=== PATIENT | male | born 1955 | race Hispanic/Latino ===

== ENCOUNTER 2018-03-05 11:22 | Inpatient (IN) | payer OTHER, BC ==
--- NOTE | 2018-03-05 13:15 | RAD ---
PROCEDURE: Right Femur Radiographs. HISTORY: trauma COMPARISON: None. TECHNIQUE: AP and Lateral Radiographs of the right femur. FINDINGS: FEMUR: Impacted right femoral neck fracture. No other fracture identified. SOFT TISSUES: Normal. OTHER FINDINGS: None. IMPRESSION: Impacted right femoral neck fracture.
--- NOTE | 2018-03-05 13:16 | RAD ---
PROCEDURE: Right Hip Radiographs. HISTORY: trauma COMPARISON: None. FINDINGS: BONES: Comminuted right femoral neck fracture with some impaction. No other fracture identified. JOINTS: No dislocation. No evidence arthritis. SOFT TISSUES: Normal. OTHER FINDINGS: None. IMPRESSION: Comminuted nondisplaced femoral neck fracture with mild impaction.
[2018-03-05] MEDS ORDERED: Sodium Chloride 0.9% 1,000 ML IV ONE (13:20)
[2018-03-05 13:53] LABS: BASO % 0.6 % (0.0-2.0); EOS % 0.9 % (0.0-4.0); HEMOGLOBIN 12.8 g/dL (12.0-18.0); LYMPH # 1.1 K/uL (1.0-4.3); LYMPH % 20.1 % (20.0-40.0); MEAN CELL VOLUME 88.6 fL (80.0-94.0); MEAN CORPUSCULAR HEMOGLOBIN 30.6 pg (27.0-31.0); MEAN CORPUSCULAR HGB CONC 34.6 g/dL (33.0-37.0); MEAN PLATELET VOLUME 8.1 fL (7.2-11.7); MONO # 0.6 K/uL (0.0-0.8); MONO % 10.9 % (0.0-10.0); NEUT # 3.6 K/uL (1.8-7.0); NEUT % 67.5 % (50.0-75.0); RBC 4.19 Mil/uL (4.40-5.90); RED CELL DISTRIBUTION WIDTH 12.5 % (11.5-14.5); WHITE BLOOD COUNT 5.4 K/uL (4.8-10.8)
[2018-03-05 14:07] LABS: ALB/GLOB RATIO 1.1 (1.0-2.1); ALBUMIN 4.2 g/dL (3.5-5.0); ALT/SGPT 20 U/L (21-72); AST/SGOT 21 U/L (17-59); BLOOD UREA NITROGEN 18 mg/dL (9-20); CALCIUM 9.4 mg/dl (8.6-10.4); GFR AFRICAN-AMERICAN > 60; GFR NON-AFRICAN AMERICAN > 60
[2018-03-05 14:42] LABS: URINE BILIRUBIN NEGATIVE (NEGATIVE); URINE BLOOD NEGATIVE (NEGATIVE); URINE CLARITY Clear (Clear); URINE COLOR Yellow (YELLOW); URINE GLUCOSE (UA) NORMAL (Normal); URINE LEUKOCYTE ESTERASE NEG Leu/uL (Negative); URINE PROTEIN NEGATIVE (NEGATIVE); URINE UROBILINOGEN NORMAL mg/dL (0.2-1.0)
--- NOTE | 2018-03-05 14:45 | C.PDOC ---
History Of Present Illness 62 yo male with PMH HTN c/o right leg pain for 1 week. Pt notes that he was at work at the [employer], his left foot was stuck in a string and he fell on his right side 10 days ago. PT saw an urgent care 4 days ago who instructed him to take pain medication. Pt followed up yesterday at which time the took Xr and was told he had fracture and instructed to come to the hospital. Pt has been ambulating on it. Denies head injury , back pain, urinary or bowel incontinence , or change in sensation. Time Seen by Provider: 03/05/18 11:45 Chief Complaint (Nursing): Lower Extremity Problem/Injury History Per: Patient History/Exam Limitations: no limitations Onset/Duration Of Symptoms: Days Current Symptoms Are (Timing): Still Present Past Medical History Vital Signs: Last Vital Signs Temp 98.1 F 03/05/18 14:25 Pulse 79 03/05/18 14:25 Resp 18 03/05/18 14:25 BP 152/84 H 03/05/18 14:25 Pulse Ox 99 03/05/18 15:06 - Medical History PMH: HTN Family History: States: Unknown Family Hx - Social History Hx Tobacco Use: No Hx Alcohol Use: No Hx Substance Use: No - Immunization History Hx Tetanus Toxoid Vaccination: No Hx Influenza Vaccination: No Hx Pneumococcal Vaccination: No Review Of Systems Except As Marked, All Systems Reviewed And Found Negative. Physical Exam - Physical Exam Appears: Well, Non-toxic, No Acute Distress Skin: Normal Color, Warm, Dry Head: Atraumatic, Normacephalic Eye(s): bilateral: Normal Inspection, EOMI Nose: Normal Oral Mucosa: Moist Neck: Normal, Normal ROM, Supple Chest: Symmetrical Cardiovascular: Rhythm Regular Respiratory: Normal Breath Sounds, No Accessory Muscle Use Gastrointestinal/Abdominal: Normal Exam, Soft, No Tenderness Back: Normal Inspection, No CVA Tenderness, No Vertebral Tenderness Extremity: No Normal ROM, Tenderness (midfemoral tenderness), Capillary Refill ( < 2 sec) Neurological/Psych: Oriented x3, Normal Speech, Normal Sensation ED Course And Treatment - Laboratory Results Result Diagrams: 03/05/18 13:45 03/05/18 13:45 O2 Sat by Pulse Oximetry: 99 - Other Rad Right hip fx X-Ray: Interpreted by Me, Viewed By Me, Read By Radiologist Interpretation: PROCEDURE: Right Hip Radiographs. HISTORY: trauma. COMPARISON: None. FINDINGS: BONES: Comminuted right femoral neck fracture with some impaction. No other fracture identified. JOINTS: No dislocation. No evidence arthritis. SOFT TISSUES: Normal. OTHER FINDINGS: None. IMPRESSION : Comminuted nondisplaced femoral neck fracture with mild impaction. Progress Note: Pt refused pain medication. Case discussed with Dr Marie, agreed upon admission. Requests Dr Mcneill for consult for ortho. Case discussed with Dr Mcneill, who declines consult. Disposition - Disposition Disposition: HOSPITALIZED Disposition Time: 13:30 Condition: STABLE - Clinical Impression Clinical Impression: Fracture of right hip
--- NOTE | 2018-03-05 14:55 | CP.PCM.PN ---
Objective - Vital Signs/Intake and Output Vital Signs (last 24 hours): Temp Pulse Resp BP Pulse Ox 98.1 F 79 18 152/84 H 99 03/05/18 14:25 03/05/18 14:25 03/05/18 14:25 03/05/18 14:25 03/05/18 14:45 - Medications Medications: Current Medications Sodium Chloride (Sodium Chloride 0.9%) 1,000 mls @ 100 mls/hr IV .Q10H ONE Stop: 03/05/18 23:19 Last Admin: 03/05/18 13:49 Dose: 100 mls/hr - Labs Labs: 03/05/18 13:45 03/05/18 13:45 Assessment and Plan - Assessment and Plan (Free Text) Assessment: Right Femoral Neck Fracture seen on femur xray and hip/pelvis xray Ortho consulted, Dr. Espinoza NPO Toradol 30mg q6h prn cxray, ekg, coags ordered for pre-op HTN continue home medication Losartan 50mg po BID Prophylaxis SCDs no gi prophylaxis indicated
--- NOTE | 2018-03-05 14:58 | CP.PCM.HP ---
History of Present Illness - History of Present Illness History of Present Illness: CC: right thigh pain HPI: Pt is a 62 M with a PMHX of HTN presents c/o of right lower extremity pain. Pt fell at work on 02/24 after tripping over a wire. Pt stated that he fell on his right side and only hit his leg and hip. Pt denies LOC or head trauma during the fall. On 03/01, he visited an urgent care clinic because the of the pain. He was not able to see a physician or get an x-ray so he visited the urgent care clinic again on 03/04 and obtained an X-ray. The patient states the clinic found a fracture and called him this morning to recommend visiting the ED. Pt states that the pain has been intermittent and sharp since the fall. He admits the pain is localized to the front of the thigh and occasionally radiates to the back of the thigh. However, he has been bearing weight and ambulating on the leg since then. Pt states that he did not take any medication to relive the pain and he just applied ice to the leg which helps. Pt states that flexion of the hip worsens the pain. Additionally, the patient is noncompliant with his HTN Medication and takes it once a day occasionally rather than twice a day as prescribed. Pt denies fevers, chills, diaphoresis, headache, vision changes, chest pain, palpitations, shortness of breath, nausea , vomiting, diarrhea. Control Clerk Head: Dr. Gee PMHX: HTN PSH: denies FAMILY HX: Father- (66) Hypertension ; Mother- (60) Alzheimer' s Disease ALLERGIES: NKDA SOCIAL: Pt denies tobacco, alcohol, and illicit drug use. Pt is a [employer] and lives at home with his . MEDICATIONS: Losartan 50 mg PO BID Present on Admission - Present on Admission Any Indicators Present on Admission: No History of DVT/PE: No History of Uncontrolled Diabetes: No Urinary Catheter: No Decubitus Ulcer Present: No Review of Systems - Constitutional Constitutional: absent: Chills, Fever - EENT Eyes: absent: Blurred Vision, Change in Vision, Loss of Vision Ears: absent: Dizziness Nose/Mouth/Throat: absent: Sore Throat - Cardiovascular Cardiovascular: absent: Chest Pain, Dyspnea, Edema, Palpitations, Syncope - Respiratory Respiratory: absent: Cough, Dyspnea - Gastrointestinal Gastrointestinal: absent: Abdominal Pain, Constipation, Diarrhea, Nausea, Vomiting - Genitourinary Genitourinary: absent: Dysuria - Musculoskeletal Musculoskeletal: Myalgias. absent: Numbness, Tingling Additional comments: anterior right thigh pain long term been hip and knee that radiates to the posterior aspect of the thigh - Integumentary Integumentary: absent: Rash - Neurological Neurological: absent: Tingling, Vertigo, Weakness Past Patient History - Infectious Disease Hx of Infectious Diseases: None - Past Social History Smoking Status: Never Smoked - CARDIAC Hx Hypertension: Yes - PSYCHIATRIC Hx Substance Use: No - ANESTHESIA Hx Anesthesia: No Meds Allergies/Adverse Reactions: Allergies Allergy/AdvReac Type Severity Reaction Status Date / Time No Known Allergies Allergy Verified 03/05/18 11:34 Physical Exam - Constitutional Appears: Non-toxic, No Acute Distress - Head Exam Head Exam: ATRAUMATIC, NORMAL INSPECTION, NORMOCEPHALIC - Eye Exam Eye Exam: EOMI, Normal appearance Pupil Exam: NORMAL ACCOMODATION - ENT Exam ENT Exam: Mucous Membranes Moist - Neck Exam Neck exam: Positive for: Normal Inspection - Respiratory Exam Respiratory Exam: Clear to Auscultation Bilateral, NORMAL BREATHING PATTERN. absent: Rales, Rhonchi, Wheezes, Respiratory Distress, Stridor - Cardiovascular Exam Cardiovascular Exam: REGULAR RHYTHM, RRR, +S1, +S2 - GI/Abdominal Exam GI & Abdominal Exam: Normal Bowel Sounds, Soft. absent: Tenderness - Extremities Exam Extremities exam: Positive for: normal inspection. Negative for: pedal edema Additional comments: right thigh pain - Expanded Lower Extremities Exam Right Hip exam: tenderness. absent: ecchymosis, full ROM (pain with hip movement ) Upper Leg exam: absent: ecchymosis Knee exam: full ROM Lower Leg Exam: normal inspection Ankle exam: FULL ROM - Back Exam Back exam: NORMAL INSPECTION - Neurological Exam Neurological exam: Alert, Oriented x3 - Psychiatric Exam Psychiatric exam: Normal Affect, Normal Mood - Skin Skin Exam: Intact, Normal Color, Warm Additional comments: no ecchymosis Results - Vital Signs Recent Vital Signs: Last Vital Signs Temp 98.1 F 03/05/18 14:25 Pulse 79 03/05/18 14:25 Resp 18 03/05/18 14:25 BP 152/84 H 03/05/18 14:25 Pulse Ox 99 03/05/18 14:45 - Labs Result Diagrams: 03/05/18 13:45 03/05/18 13:45 Labs: Laboratory Results - last 24 hr 03/05/18 03/05/18 03/05/18 13:45 13:45 13:58 WBC 5.4 RBC 4.19 L Hgb 12.8 Hct 37.1 MCV 88.6 MCH 30.6 MCHC 34.6 RDW 12.5 Plt Count 268 MPV 8.1 Neut % (Auto) 67.5 Lymph % (Auto) 20.1 Branch % (Auto) 10.9 H Eos % (Auto) 0.9 Baso % (Auto) 0.6 Neut # (Auto) 3.6 Lymph # (Auto) 1.1 Branch # (Auto) 0.6 Eos # (Auto) 0.0 Baso # (Auto) 0.0 Sodium 141 Potassium 4.1 Chloride 100 Carbon Dioxide 26 Anion Gap 19 BUN 18 Creatinine 0.8 Est GFR ( Amer) > 60 Est GFR (Non-Af Amer) > 60 Random Glucose 79 Calcium 9.4 Total Bilirubin 0.8 AST 21 ALT 20 L Alkaline Phosphatase 75 Total Protein 7.9 Albumin 4.2 Globulin 3.7 Albumin/Globulin Ratio 1.1 Urine Color Yellow Urine Clarity Clear Urine pH 6.0 Ur Specific [place] 1.011 Urine Protein Negative Urine Glucose (UA) Normal Urine Ketones Negative Urine Blood Negative Urine Nitrate Negative Urine Bilirubin Negative Urine Urobilinogen Normal Ur Leukocyte Esterase Neg Urine WBC (Auto) < 1 Urine RBC (Auto) < 1 Assessment & Plan - Assessment and Plan (Free Text) Assessment: Right Femoral Neck Fracture seen on femur xray and hip/pelvis xray Ortho consulted, Dr. Espinoza NPO NS @ 100 cc/ hr Toradol 30mg q6h prn cxray, ekg, coags ordered for pre-op HTN continue home medication Losartan 50mg po BID Prophylaxis SCDs no gi prophylaxis indicated
--- NOTE | 2018-03-05 15:45 | RAD ---
HISTORY: preop COMPARISON: 10/24/2013 FINDINGS: LUNGS: No active pulmonary disease. PLEURA: No significant pleural effusion identified, no pneumothorax apparent. CARDIOVASCULAR: Normal. OSSEOUS STRUCTURES: No significant abnormalities. VISUALIZED UPPER ABDOMEN: Normal. OTHER FINDINGS: None. IMPRESSION: No active disease.
[2018-03-05 16:40] LABS: INR 1.2; PROTHROMBIN TIME 12.9 SECONDS (9.7-12.2)
--- NOTE | 2018-03-05 22:45 | CT ---
EXAM: CT Right Lower Extremity Without Intravenous Contrast, Hip EXAM DATE/TIME: 03/05/2018 7:43 PM CLINICAL HISTORY: 62 years old, male; Injury or trauma; Fall; Initial encounter; Fracture, traumatic; Nondisplaced; Hip; Right; Prior surgery; Additional info: Right femoral neck fracture TECHNIQUE: Axial computed tomography images of the right hip without intravenous contrast. All CT scans at this facility use one or more dose reduction techniques, viz.: automated exposure control; ma/kV adjustment per patient size (including targeted exams where dose is matched to indication; i.e. head); or iterative reconstruction technique. Coronal and sagittal reformatted images were created and reviewed. COMPARISON: There are no prior studies for comparison. FINDINGS: Bones/joints: Visualized portion of the right ilium is intact. Right ischium and pubis are intact. Symphysis pubis is normal in width. There is an impacted right subcapital fracture. Femoral head projects within the acetabulum. There is an effusion in the right hip joint. Soft tissues: There is overlying bruising and edema in the soft tissues at the right hip. Bladder: Bladder is distended. There may be a bladder diverticulum on the left. Reproductive: Prostate is enlarged. Seminal vesicles are unremarkable. Other findings: There is a nonspecific gas pattern the visualized pelvis. IMPRESSION: Impacted right subcapital fracture with joint effusion; soft tissue bruising and edema Additional nonemergent findings as described above.
[2018-03-06 06:37] LABS: BASO % 0.3 % (0.0-2.0); EOS # 0.1 K/uL (0.0-0.7); EOS % 1.5 % (0.0-4.0); HEMOGLOBIN 12.6 g/dL (12.0-18.0); LYMPH # 0.9 K/uL (1.0-4.3); LYMPH % 20.2 % (20.0-40.0); MEAN CORPUSCULAR HGB CONC 34.1 g/dL (33.0-37.0); MEAN PLATELET VOLUME 8.2 fL (7.2-11.7); MONO # 0.5 K/uL (0.0-0.8); MONO % 10.9 % (0.0-10.0); NEUT # 3.1 K/uL (1.8-7.0); NEUT % 67.1 % (50.0-75.0); RBC 4.18 Mil/uL (4.40-5.90); RED CELL DISTRIBUTION WIDTH 12.9 % (11.5-14.5); WHITE BLOOD COUNT 4.6 K/uL (4.8-10.8)
--- NOTE | 2018-03-06 06:50 | CP.PCM.PN ---
<Navjot Benitez - Last Filed: 03/06/18 10:21> Subjective - Date & Time of Evaluation Date of Evaluation: 03/06/18 Time of Evaluation: 06:42 - Subjective Subjective: PGY-[address] Marie's service: Pt seen and examined at bedside. Nursing reports no acute events overnight. Patient reporting minimal pain "in his thigh" this AM, and denied need for pain medication overnight. Denies chest pain, palpitations, or shortness of breath. Pt NPO for OR today with Dr. Espinoza. Objective - Vital Signs/Intake and Output Vital Signs (last 24 hours): Temp Pulse Resp BP Pulse Ox 98 F 80 20 150/84 100 03/05/18 23:10 03/05/18 23:10 03/05/18 23:10 03/06/18 04:50 03/05/18 23:10 Intake and Output: 03/05/18 03/06/18 18:59 06:59 Intake Total 900 Output Total 200 Balance 700 - Medications Medications: Current Medications Ketorolac Tromethamine (Toradol) 30 mg IVP Q6 PRN PRN Reason: Pain, moderate (4-7) Losartan Potassium (Cozaar) 50 mg PO BID KIA Last Admin: 03/05/18 17:55 Dose: 50 mg - Labs Labs: 03/05/18 13:45 03/05/18 13:45 PT 12.9 SECONDS (9.7-12.2) H 03/05/18 16:15 INR 1.2 03/05/18 16:15 APTT 32 SECONDS (21-34) 03/05/18 16:15 - Additional Findings Additional findings: - Constitutional Appears: Non-toxic, No Acute Distress - Head Exam Head Exam: ATRAUMATIC, NORMAL INSPECTION, NORMOCEPHALIC - Eye Exam Eye Exam: EOMI, Normal appearance Pupil Exam: NORMAL ACCOMODATION - ENT Exam ENT Exam: Mucous Membranes Moist - Neck Exam Neck exam: Positive for: Normal Inspection - Respiratory Exam Respiratory Exam: Clear to Auscultation Bilateral, NORMAL BREATHING PATTERN. absent: Rales, Rhonchi, Wheezes, Respiratory Distress, Stridor - Cardiovascular Exam Cardiovascular Exam: REGULAR RHYTHM, RRR, +S1, +S2 - GI/Abdominal Exam GI & Abdominal Exam: Normal Bowel Sounds, Soft. absent: Tenderness - Extremities Exam Extremities exam: Positive for: normal inspection. Negative for: pedal edema Additional comments: right thigh pain - Expanded Lower Extremities Exam Right Hip exam: tenderness. absent: ecchymosis, full ROM (pain with hip movement ) Upper Leg exam: absent: ecchymosis Knee exam: full ROM Lower Leg Exam: normal inspection Ankle exam: FULL ROM - Back Exam Back exam: NORMAL INSPECTION - Neurological Exam Neurological exam: Alert, Oriented x3 - Psychiatric Exam Psychiatric exam: Normal Affect, Normal Mood - Skin Skin Exam: Intact, Normal Color, Warm Additional comments: no ecchymosis Assessment and Plan - Assessment and Plan (Free Text) Plan: Right Femoral Neck Fracture seen on femur xray and hip/pelvis xray Ortho consulted, Dr. Espinoza NPO for OR today NS @ 100 cc/ hr Toradol 30mg q6h prn Pre-op workup: cxray NAD ekg NSR @ 81 bpm, left anterior fascicular block coags WNL Lipid panel/TSH WNL Thacker Score 0.02% Estimated Risk Probability for Perioperative Myocardial Infarction or Cardiac Arrest (low-risk of cardiovascular event) HTN Elevated this AM continue home medication Losartan 50mg po BID Monitor Prophylaxis SCDs no gi prophylaxis indicated HOLD VTE pending surgical recommendations s/p surgery Navjot Benitez PGY-2 Dr. Marie <Leo Marie Jr. - Last Filed: 03/06/18 14:58> Objective - Vital Signs/Intake and Output Vital Signs (last 24 hours): Temp Pulse Resp BP Pulse Ox 98.7 F 92 H 10 L 160/84 H 100 03/06/18 14:17 03/06/18 14:17 03/06/18 14:17 03/06/18 14:17 03/06/18 14:17 Intake and Output: 03/06/18 03/06/18 06:59 18:59 Intake Total 900 1200 Output Total 200 400 Balance 700 800 - Medications Medications: Current Medications Enoxaparin Sodium (Lovenox) 40 mg SC DAILY KIA Hydromorphone HCl (Dilaudid) 0.5 mg IVP Q10M PRN PRN Reason: Pain, moderate (4-7) Stop: 03/06/18 16:17 Hydromorphone HCl (Dilaudid) 0.5 mg IVP Q4H PRN PRN Reason: Pain, severe (8-10) Cefazolin Sodium/Dextrose (Ancef Iv 1 Gm Duplex) 1 gm in 50 mls @ 100 mls/hr IVPB Q8H KIA PRN Reason: Protocol Stop: 03/07/18 04:59 Ketorolac Tromethamine (Toradol) 30 mg IVP Q6 PRN PRN Reason: Pain, moderate (4-7) Losartan Potassium (Cozaar) 50 mg PO BID KIA Last Admin: 03/06/18 08:40 Dose: 50 mg Oxycodone/Acetaminophen (Percocet 5/325 Mg Tab) 2 tab PO Q4H PRN PRN Reason: Pain, moderate (4-7) Stop: 03/09/18 14:50 - Labs Labs: 03/06/18 06:28 03/06/18 06:28 PT 12.9 SECONDS (9.7-12.2) H 03/05/18 16:15 INR 1.2 03/05/18 16:15 APTT 32 SECONDS (21-34) 03/05/18 16:15 Attending/Attestation - Attestation I have personally seen and examined this patient.: Yes I have fully participated in the care of the patient.: Yes I have reviewed all pertinent clinical information, including history, physical exam and plan: Yes Notes (Text): 03/06/18 14:58 agree with resident note findings and plan of care.
[2018-03-06 06:51] LABS: ALB/GLOB RATIO 1.1 (1.0-2.1); ALBUMIN 3.6 g/dL (3.5-5.0); ALT/SGPT 18 U/L (21-72); AST/SGOT 23 U/L (17-59); BLOOD UREA NITROGEN 16 mg/dL (9-20); CALCIUM 9.2 mg/dl (8.6-10.4); GFR AFRICAN-AMERICAN > 60; GFR NON-AFRICAN AMERICAN > 60; HDL CHOLESTEROL 36 mg/dL (30-70)
[2018-03-06 07:05] LABS: LDL CHOLESTEROL 100 mg/dL (0-129)
[2018-03-06] MEDS ORDERED: Bupivacaine Liposomal Inj 20 ml INJ ONE (07:28)
[2018-03-06] MEDS ORDERED: Bacitracin 150,000 UNIT in Sodium Chloride 0.9% Irrig 3,000 ML IR SCH (07:30)
[2018-03-06] MEDS ORDERED: ceFAZolin 1 gm in NS 2 GM/200 ML BAG IVPB ONE (12:22)
[2018-03-06] MEDS ORDERED: Propofol 10 mg/ml Inj (20 ML) ONE (12:22)
[2018-03-06] MEDS ORDERED: Midazolam 2 MG/2 ML VIAL ONE (12:22)
[2018-03-06] MEDS ORDERED: Rocuronium 10 mg/ml (5 ml) ONE (12:25)
[2018-03-06] MEDS ORDERED: ePHEDrine 50 mg/ml Inj ONE (13:17)
[2018-03-06] MEDS ORDERED: Neostigmine Methylsulfate 3mg/3ml Syringe IV ONE (13:57)
[2018-03-06] MEDS ORDERED: Bupivacaine HCl 0.25% PF (30 ml) Inj ONE (14:03)
[2018-03-06] MEDS: HYDROmorphone 0.5 mg/0.5 ml ISec IVP PRN ×4 (14:17→15:17)
--- NOTE | 2018-03-06 14:42 | RAD ---
PROCEDURE: Intraoperative Fluoroscopy. HISTORY: Right hip fracture FINDINGS: Fluoroscopic assistance was provided for right hip open reduction internal fixation. Please refer to the operative report from YESENIA Ly.
[2018-03-06 16:41] VITALS: RESP 20
--- NOTE | 2018-03-06 16:46 | RAD ---
PROCEDURE: Pelvis right hip HISTORY: post right hip pinning COMPARISON: Preoperative study March 05, 2018. TECHNIQUE: Standard protocol for this study/examination. FINDINGS: Satisfactory position alignment of fracture fragments following pinning of the known right femoral neck fracture. IMPRESSION: Major fracture fragments anatomically aligned. Satisfactory postoperative status
[2018-03-06] MEDS: ceFAZolin IV 1 gm in Dextrose 1 GM/50 ML BAG IVPB SCH (19:40)
--- NOTE | 2018-03-07 00:40 | OP ---
PROCEDURE DATE: 03/06/2018 PREOPERATIVE DIAGNOSIS: Right femoral neck fracture. POSTOPERATIVE DIAGNOSIS: Right femoral neck fracture. PROCEDURE: Open reduction and internal fixation of right hip fracture with cannulated screws. SURGEON: Scooby Espinoza MD TYPE OF ANESTHESIA: General. COMPLICATIONS: None. ESTIMATED BLOOD LOSS: 25 mL. INDICATION OF PROCEDURE: This is a 62-year-old gentleman who approximately 10 days ago fell while at work, injuring the right hip. The patient subsequently went to an urgent care center with complaints of right hip pain. He had x-rays and was discharged. Subsequently, the patient was told to follow up in the emergency room for a right hip fracture. The patient presented yesterday with complaints of right hand pain. Clinical radiographic examination is consistent with right femoral neck fracture. Recommendations were for open reduction and internal fixation once the patient was medically optimized. The risk, benefits, and alternatives of the procedure were discussed with the patient including the possibility of nonunion, malunion, as well as the future development of avascular necrosis and arthritis. The patient understood these risk and informed consent was obtained. OPERATIVE PROCEDURE: The surgical site was finally verified in the preoperative holding area. The patient was taken to the operating room, placed supine on the operating table. After administration of general anesthesia, the patient received 2 gm of Ancef IV. The patient's right lower extremity was positioned on the fracture table. The left lower extremity was well padded and extended away from the operative field. At this point, the C-arm image intensifier was brought in and the original closed reduction was performed checking the reduction of both the AP and lateral planes, satisfied, the right lower extremity was prepped and draped in usual sterile fashion. The bony landmarks were identified about the proximal femur, and approximately 5 cm incision was made just distal to the tip of the greater trochanter. Soft tissue was dissected sharply down to the bone and guide wire for first screw was placed on the lateral cortex of the proximal femur. Using the C-arm intensifier, the first screw was inserted in the region inferiorly and posteriorly in the femoral neck. Position of the guide pin was confirmed using image intensifier. Satisfied with that position, two additional screws were placed, one anterior superior and one posterior superiorly in an inverted triangle fashion into the femoral neck and across the fracture site and into the femoral head. Again the position of the guide pins were confirmed using image intensifier. Satisfied, the length of the screws were measured and each of the holes for the screws were then drilled to the appropriate depth. Three partially cannulated screws were then inserted with making sure that all threads were across the fracture site. The guide pins were then removed and final x-rays were taken confirming good position of the screws as well as good fracture reduction. At this point, the wound was irrigated and then closed in a layered fashion. Sterile dressing was applied. The patient was awakened from the procedure, transferred to a stretcher, and taken to the recovery room in stable condition. Scooby Espinoza MD
[2018-03-07] MEDS: ceFAZolin IV 1 gm in Dextrose 1 GM/50 ML BAG IVPB SCH (04:00)
[2018-03-07] MEDS: HYDROmorphone 0.5 mg/0.5 ml ISec IVP PRN ×2 (04:05→10:16)
--- NOTE | 2018-03-07 08:28 | CP.PCM.PN ---
Subjective - Date & Time of Evaluation Date of Evaluation: 03/07/18 Time of Evaluation: 08:26 - Subjective Subjective: PGY-[address] Marie's service: Pt seen and examined at bedside. Nursing reports no acute events overnight. Pt POD #1, s/p ORIF Rt hip fracture. Patient reports 4/10 pain in his his right hip , after receiving pain medication. Overnight worst pain was 8/10. Admits tolerating diet, moving bowels this AM, and is using incentive spirometer 5x, twice hourly, per instructions. Objective - Vital Signs/Intake and Output Vital Signs (last 24 hours): Temp Pulse Resp BP Pulse Ox 98.5 F 86 20 137/77 98 03/07/18 04:05 03/07/18 04:05 03/07/18 04:05 03/07/18 04:05 03/07/18 04:05 Intake and Output: 03/07/18 03/07/18 06:59 18:59 Intake Total 200 Output Total 675 Balance -475 - Medications Medications: Current Medications Enoxaparin Sodium (Lovenox) 40 mg SC DAILY [facility] Hydromorphone HCl (Dilaudid) 0.5 mg IVP Q4H PRN PRN Reason: Pain, severe (8-10) Last Admin: 03/07/18 04:05 Dose: 0.5 mg Ketorolac Tromethamine (Toradol) 30 mg IVP Q6 PRN PRN Reason: Pain, moderate (4-7) Last Admin: 03/06/18 21:23 Dose: 30 mg Losartan Potassium (Cozaar) 50 mg PO BID [facility] Last Admin: 03/06/18 17:49 Dose: 50 mg Oxycodone/Acetaminophen (Percocet 5/325 Mg Tab) 2 tab PO Q4H PRN PRN Reason: Pain, moderate (4-7) Stop: 03/09/18 14:50 - Labs Labs: 03/06/18 06:28 03/06/18 06:28 PT 12.9 SECONDS (9.7-12.2) H 03/05/18 16:15 INR 1.2 03/05/18 16:15 APTT 32 SECONDS (21-34) 03/05/18 16:15 - Additional Findings Additional findings: - Constitutional Appears: Non-toxic, No Acute Distress - Head Exam Head Exam: ATRAUMATIC, NORMAL INSPECTION, NORMOCEPHALIC - Eye Exam Eye Exam: EOMI, Normal appearance Pupil Exam: NORMAL ACCOMODATION - ENT Exam ENT Exam: Mucous Membranes Moist - Neck Exam Neck exam: Positive for: Normal Inspection - Respiratory Exam Respiratory Exam: Clear to Auscultation Bilateral, NORMAL BREATHING PATTERN. absent: Rales, Rhonchi, Wheezes, Respiratory Distress, Stridor - Cardiovascular Exam Cardiovascular Exam: REGULAR RHYTHM, RRR, +S1, +S2 - GI/Abdominal Exam GI & Abdominal Exam: Normal Bowel Sounds, Soft. absent: Tenderness - Extremities Exam Extremities exam: Positive for: normal inspection. Negative for: pedal edema Additional comments: right hip pain; bandage c/d/i - Back Exam Back exam: NORMAL INSPECTION - Neurological Exam Neurological exam: Alert, Oriented x3 - Psychiatric Exam Psychiatric exam: Normal Affect, Normal Mood - Skin Skin Exam: Intact, Normal Color, Warm Assessment and Plan - Assessment and Plan (Free Text) Plan: Right Femoral Neck Fracture s/p ORIF POD#1 seen on femur xray and hip/pelvis xray Ortho consulted, Dr. Espinoza Percocet 2 tabs PO Q4h PRN moderate Dilaudid 0.5mg IV Q4H PRN severe Pre-op workup: cxray NAD ekg NSR @ 81 bpm, left anterior fascicular block coags WNL Lipid panel/TSH WNL Thacker Score 0.02% Estimated Risk Probability for Perioperative Myocardial Infarction or Cardiac Arrest (low-risk of cardiovascular event) HTN controlled this AM continue home medication Losartan 50mg po BID Monitor Prophylaxis SCDs (on left only) Lovenox 40mg SC Daily no gi prophylaxis indicated Navjot Benitez PGY-2 Dr. Marie
[2018-03-07 09:25] LABS: BASO % 0.3 % (0.0-2.0); EOS % 0.8 % (0.0-4.0); HEMOGLOBIN 10.9 g/dL (12.0-18.0); MEAN CELL VOLUME 88.5 fL (80.0-94.0); MEAN CORPUSCULAR HGB CONC 33.9 g/dL (33.0-37.0); MEAN PLATELET VOLUME 8.2 fL (7.2-11.7); MONO # 0.7 K/uL (0.0-0.8); MONO % 11.8 % (0.0-10.0); NEUT # 3.9 K/uL (1.8-7.0); NEUT % 70.1 % (50.0-75.0); RBC 3.62 Mil/uL (4.40-5.90); RED CELL DISTRIBUTION WIDTH 12.6 % (11.5-14.5); WHITE BLOOD COUNT 5.6 K/uL (4.8-10.8)
[2018-03-07 09:41] LABS: ALB/GLOB RATIO 1.1 (1.0-2.1); ALBUMIN 3.3 g/dL (3.5-5.0); ALT/SGPT 28 U/L (21-72); AST/SGOT 17 U/L (17-59); BLOOD UREA NITROGEN 18 mg/dL (9-20); CALCIUM 8.8 mg/dl (8.6-10.4); GFR AFRICAN-AMERICAN > 60; GFR NON-AFRICAN AMERICAN > 60
[2018-03-07] MEDS: Enoxaparin 40 mg Syringe SC SCH (10:17)
[2018-03-07] MEDS: Oxycodone/Acetaminophen 5/325 mg Tab PO PRN ×2 (13:49→21:56)
[2018-03-08 06:31] LABS: BASO % 0.3 % (0.0-2.0); EOS # 0.1 K/uL (0.0-0.7); EOS % 2.1 % (0.0-4.0); LYMPH # 1.2 K/uL (1.0-4.3); LYMPH % 21.2 % (20.0-40.0); MEAN CELL VOLUME 88.1 fL (80.0-94.0); MEAN CORPUSCULAR HEMOGLOBIN 29.3 pg (27.0-31.0); MEAN CORPUSCULAR HGB CONC 33.2 g/dL (33.0-37.0); MEAN PLATELET VOLUME 8.1 fL (7.2-11.7); MONO # 0.7 K/uL (0.0-0.8); MONO % 13.3 % (0.0-10.0); NEUT # 3.5 K/uL (1.8-7.0); NEUT % 63.1 % (50.0-75.0); RBC 3.76 Mil/uL (4.40-5.90); RED CELL DISTRIBUTION WIDTH 12.6 % (11.5-14.5); WHITE BLOOD COUNT 5.5 K/uL (4.8-10.8)
[2018-03-08 06:34] LABS: ALB/GLOB RATIO 1.2 (1.0-2.1); ALBUMIN 3.7 g/dL (3.5-5.0); ALT/SGPT 12 U/L (21-72); AST/SGOT 14 U/L (17-59); BLOOD UREA NITROGEN 12 mg/dL (9-20); CALCIUM 8.6 mg/dl (8.6-10.4); GFR AFRICAN-AMERICAN > 60; GFR NON-AFRICAN AMERICAN > 60
--- NOTE | 2018-03-08 08:09 | CP.PCM.PN ---
Subjective - Date & Time of Evaluation Date of Evaluation: 03/08/18 Time of Evaluation: 08:02 - Subjective Subjective: Patient POD #2 s/p ORIF right hip fracture. Patient alert and awake. Sitting up in bed. Denies any significant pain Aferbile WBC 5.5 Hgb 11.0 R hip: dressings removed. Incision clean and intact. No drainage or erythema. No signs cellulitis or infection. Incision cleaned with NSS and new dressing applied. Calf and thigh are soft nontender. NVI distally POD# 2 s/p ORIF right femoral neck fracture Patient ok to be discharged to home today Physical therapy today- crutch training Continue with DVT prophylaxis to home Continue with NWB Will follow up with patient in Dr. Espinoza office next week Objective - Vital Signs/Intake and Output Vital Signs (last 24 hours): Temp Pulse Resp BP Pulse Ox 98.7 F 77 20 147/84 98 03/08/18 07:56 03/08/18 07:56 03/08/18 07:56 03/08/18 07:56 03/08/18 07:56 Intake and Output: 03/08/18 03/08/18 06:59 18:59 Intake Total 650 Output Total 1900 Balance -1250 - Medications Medications: Current Medications Enoxaparin Sodium (Lovenox) 40 mg SC DAILY [facility] Last Admin: 03/07/18 10:17 Dose: 40 mg Hydromorphone HCl (Dilaudid) 0.5 mg IVP Q4H PRN PRN Reason: Pain, severe (8-10) Last Admin: 03/07/18 10:16 Dose: 0.5 mg Losartan Potassium (Cozaar) 50 mg PO BID [facility] Last Admin: 03/07/18 18:09 Dose: 50 mg Oxycodone/Acetaminophen (Percocet 5/325 Mg Tab) 2 tab PO Q4H PRN PRN Reason: Pain, moderate (4-7) Stop: 03/09/18 14:50 Last Admin: 03/07/18 21:56 Dose: 2 tab - Labs Labs: 03/08/18 06:09 03/08/18 06:09 PT 12.9 SECONDS (9.7-12.2) H 03/05/18 16:15 INR 1.2 03/05/18 16:15 APTT 32 SECONDS (21-34) 03/05/18 16:15
[2018-03-08] MEDS: Enoxaparin 40 mg Syringe SC SCH (10:15)
--- NOTE | 2018-03-08 13:04 | CP.PCM.PN ---
Objective - Vital Signs/Intake and Output Vital Signs (last 24 hours): Temp Pulse Resp BP Pulse Ox 98.7 F 77 20 147/84 98 03/08/18 07:56 03/08/18 07:56 03/08/18 07:56 03/08/18 07:56 03/08/18 07:56 Intake and Output: 03/08/18 03/08/18 06:59 18:59 Intake Total 650 Output Total 1900 Balance -1250 - Medications Medications: Current Medications Docusate Sodium (Colace) 100 mg PO BID [facility] Last Admin: 03/08/18 10:16 Dose: 100 mg Enoxaparin Sodium (Lovenox) 40 mg SC DAILY [facility] Last Admin: 03/08/18 10:15 Dose: 40 mg Hydromorphone HCl (Dilaudid) 0.5 mg IVP Q4H PRN PRN Reason: Pain, severe (8-10) Last Admin: 03/07/18 10:16 Dose: 0.5 mg Losartan Potassium (Cozaar) 50 mg PO BID [facility] Last Admin: 03/08/18 10:15 Dose: 50 mg Oxycodone/Acetaminophen (Percocet 5/325 Mg Tab) 2 tab PO Q4H PRN PRN Reason: Pain, moderate (4-7) Stop: 03/09/18 14:50 Last Admin: 03/07/18 21:56 Dose: 2 tab - Labs Labs: 03/08/18 06:09 03/08/18 06:09 PT 12.9 SECONDS (9.7-12.2) H 03/05/18 16:15 INR 1.2 03/05/18 16:15 APTT 32 SECONDS (21-34) 03/05/18 16:15 Assessment and Plan - Assessment and Plan (Free Text) Assessment: Right Femoral Neck Fracture seen on femur xray and hip/pelvis xray Pre-op workup: cxray NAD ekg NSR @ 81 bpm, left anterior fascicular block coags WNL Lipid panel/TSH WNL Toradol 30mg q6h prn, discontinued Pain: Percocet 2 tab po Q4H PRN, Dilaudid 0.5 mg IVP Q4H PRN Thacker Score 0.02% Estimated Risk Probability for Perioperative Myocardial Infarction or Cardiac Arrest (low-risk of cardiovascular event) HTN Elevated this AM continue home medication Losartan 50mg po BID Cozaar 50mg PO BID Monitor Constipation Colace 100 mg PO BID Prophylaxis SCDs no gi prophylaxis indicated HOLD VTE pending surgical recommendations s/p surgery Do Beatty DO PGY1
--- NOTE | 2018-03-08 14:08 | CP.PCM.DIS ---
Provider - Provider Date of Admission: 03/05/18 13:47 Attending physician: Leo Marie Jr, MD Consults: Dr. Espinoza Time Spent in preparation of Discharge (in minutes): 35 Hospital Course - Lab Results Lab Results: Most Recent Lab Values WBC 5.5 K/uL (4.8-10.8) 03/08/18 06:09 RBC 3.76 Mil/uL (4.40-5.90) L 03/08/18 06:09 Hgb 11.0 g/dL (12.0-18.0) L 03/08/18 06:09 Hct 33.1 % (35.0-51.0) L 03/08/18 06:09 MCV 88.1 fL (80.0-94.0) 03/08/18 06:09 MCH 29.3 pg (27.0-31.0) 03/08/18 06:09 MCHC 33.2 g/dL (33.0-37.0) 03/08/18 06:09 RDW 12.6 % (11.5-14.5) 03/08/18 06:09 Plt Count 237 K/uL (130-400) 03/08/18 06:09 MPV 8.1 fL (7.2-11.7) 03/08/18 06:09 Neut % (Auto) 63.1 % (50.0-75.0) 03/08/18 06:09 Lymph % (Auto) 21.2 % (20.0-40.0) 03/08/18 06:09 [place] % (Auto) 13.3 % (0.0-10.0) H 03/08/18 06:09 Eos % (Auto) 2.1 % (0.0-4.0) 03/08/18 06:09 Baso % (Auto) 0.3 % (0.0-2.0) 03/08/18 06:09 Neut # (Auto) 3.5 K/uL (1.8-7.0) 03/08/18 06:09 Lymph # (Auto) 1.2 K/uL (1.0-4.3) 03/08/18 06:09 [place] # (Auto) 0.7 K/uL (0.0-0.8) 03/08/18 06:09 Eos # (Auto) 0.1 K/uL (0.0-0.7) 03/08/18 06:09 Baso # (Auto) 0.0 K/uL (0.0-0.2) 03/08/18 06:09 PT 12.9 SECONDS (9.7-12.2) H 03/05/18 16:15 INR 1.2 03/05/18 16:15 APTT 32 SECONDS (21-34) 03/05/18 16:15 Sodium 137 mmol/L (132-148) 03/08/18 06:09 Potassium 4.3 mmol/L (3.6-5.2) 03/08/18 06:09 Chloride 100 mmol/L (98-107) 03/08/18 06:09 Carbon Dioxide 32 mmol/L (22-30) H 03/08/18 06:09 Anion Gap 10 (10-20) 03/08/18 06:09 BUN 12 mg/dL (9-20) 03/08/18 06:09 Creatinine 0.7 mg/dL (0.8-1.5) L 03/08/18 06:09 Est GFR ( Amer) > 60 03/08/18 06:09 Est GFR (Non-Af Amer) > 60 03/08/18 06:09 Random Glucose 100 mg/dL (75-110) 03/08/18 06:09 Calcium 8.6 mg/dl (8.6-10.4) 03/08/18 06:09 Phosphorus 3.3 mg/dL (2.5-4.5) 03/08/18 06:09 Magnesium 1.9 mg/dL (1.6-2.3) 03/08/18 06:09 Total Bilirubin 0.9 mg/dL (0.2-1.3) 03/08/18 06:09 AST 14 U/L (17-59) L 03/08/18 06:09 ALT 12 U/L (21-72) L D 03/08/18 06:09 Alkaline Phosphatase 72 U/L (38-126) 03/08/18 06:09 Total Protein 6.7 g/dL (6.3-8.3) 03/08/18 06:09 Albumin 3.7 g/dL (3.5-5.0) 03/08/18 06:09 Globulin 3.0 gm/dL (2.2-3.9) 03/08/18 06:09 Albumin/Globulin Ratio 1.2 (1.0-2.1) 03/08/18 06:09 Triglycerides 62 mg/dL (0-149) 03/06/18 06:28 Cholesterol 160 mg/dL (0-199) 03/06/18 06:28 LDL Cholesterol Direct 100 mg/dL (0-129) 03/06/18 06:28 HDL Cholesterol 36 mg/dL (30-70) 03/06/18 06:28 Free T4 1.28 ng/dL (0.78-2.19) 03/06/18 06:28 TSH 3rd Generation 1.48 mIU/L (0.46-4.68) 03/06/18 06:28 Urine Color Yellow (YELLOW) 03/05/18 13:58 Urine Clarity Clear (Clear) 03/05/18 13:58 Urine pH 6.0 (5.0-8.0) 03/05/18 13:58 Ur Specific [place] 1.011 (1.003-1.030) 03/05/18 13:58 Urine Protein Negative mg/dL (NEGATIVE) 03/05/18 13:58 Urine Glucose (UA) Normal mg/dL (Normal) 03/05/18 13:58 Urine Ketones Negative mg/dL (NEGATIVE) 03/05/18 13:58 Urine Blood Negative (NEGATIVE) 03/05/18 13:58 Urine Nitrate Negative (NEGATIVE) 03/05/18 13:58 Urine Bilirubin Negative (NEGATIVE) 03/05/18 13:58 Urine Urobilinogen Normal mg/dL (0.2-1.0) 03/05/18 13:58 Ur Leukocyte Esterase Neg Saroj/uL (Negative) 03/05/18 13:58 Urine WBC (Auto) < 1 /hpf (0-5) 03/05/18 13:58 Urine RBC (Auto) < 1 /hpf (0-3) 03/05/18 13:58 Blood Type O POSITIVE 03/05/18 13:45 Antibody Screen Negative 03/05/18 13:45 - Hospital Course Hospital Course: HPI: Pt is a 62 M with a PMHX of HTN presents c/o of right lower extremity pain. Pt fell at work on 02/24 after tripping over a wire. Pt stated that he fell on his right side and only hit his leg and hip. Pt denies LOC or head trauma during the fall. On 03/01, he visited an urgent care clinic because the of the pain. He was not able to see a physician or get an x-ray so he visited the urgent care clinic again on 03/04 and obtained an X-ray. The patient states the clinic found a fracture and called him this morning to recommend visiting the ED. Pt states that the pain has been intermittent and sharp since the fall. He admits the pain is localized to the front of the thigh and occasionally radiates to the back of the thigh. However, he has been bearing weight and ambulating on the leg since then. Pt states that he did not take any medication to relive the pain and he just applied ice to the leg which helps. Pt states that flexion of the hip worsens the pain. Additionally, the patient is noncompliant with his HTN Medication and takes it once a day occasionally rather than twice a day as prescribed. Pt denies fevers, chills, diaphoresis, headache, vision changes, chest pain, palpitations, shortness of breath, nausea , vomiting, diarrhea. Hospital Course Patient had right femoral neck fracture s/p ORIF. Patient did well with physical therapy. Tolerated pain well. Can void without polanco. Patient requiring a walker upon discharge. Hemoglobin stable, vitals stable. Patient discharged on Eliquis 2.5 mg PO BID for 14 days. patient to follow up with Dr. Espinoza in 7 days. Patient to take Eliquis 2.5mg PO BID for 14 days. Patient to follow weight bearing instructions per Dr. Espinoza. Return to Emergency room if difficulty with feeling, changes in color or extreme pain or tightness with right leg. - Date & Time of H&P Date of H&P: 03/08/18 Time of H&P: 14:08 Discharge Exam - Additional Findings Additional findings: - Constitutional Appears: Non-toxic, No Acute Distress - Head Exam Head Exam: ATRAUMATIC, NORMAL INSPECTION, NORMOCEPHALIC - Eye Exam Eye Exam: EOMI, Normal appearance Pupil Exam: NORMAL ACCOMODATION - ENT Exam ENT Exam: Mucous Membranes Moist - Neck Exam Neck exam: Positive for: Normal Inspection - Respiratory Exam Respiratory Exam: Clear to Auscultation Bilateral, NORMAL BREATHING PATTERN. absent: Rales, Rhonchi, Wheezes, Respiratory Distress, Stridor - Cardiovascular Exam Cardiovascular Exam: REGULAR RHYTHM, RRR, +S1, +S2 - GI/Abdominal Exam GI & Abdominal Exam: Normal Bowel Sounds, Soft. absent: Tenderness - Extremities Exam Extremities exam: Positive for: normal inspection. Negative for: pedal edema Additional comments: right hip pain; bandage c/d/i - Back Exam Back exam: NORMAL INSPECTION - Neurological Exam Neurological exam: Alert, Oriented x3 - Psychiatric Exam Psychiatric exam: Normal Affect, Normal Mood - Skin Skin Exam: Intact, Normal Color, Warm Discharge Plan - Follow Up Plan Condition: STABLE Disposition: HOME/ ROUTINE Additional Instructions: patient to follow up with Dr. Espinoza in 7 days. Patient to take Eliquis 2.5mg PO BID for 14 days. Patient to follow weight bearing instructions per Dr. Espinoza. Return to Emergency room if difficulty with feeling, changes in color or extreme pain or tightness with right leg.
--- NOTE | 2018-03-08 15:31 | CP.PCM.PN ---
Subjective - Date & Time of Evaluation Date of Evaluation: 03/08/18 Time of Evaluation: 15:30 - Subjective Subjective: SPOKE WITH MED RESIDENT, DR. MAC, WHO IS REQUESTING A RX FOR PAIN MEDICINE FOR PT HE IS GOING TO BE D/C TODAY. DR. CURRAN NO LONGER IN THE FACILITY FOR TODAY AND MED RESIDENT UNABLE TO GIVE RX FOR CONTROLLED SUBSTANCES. RX GIVEN FOR PERCOCET IT IS BEING GIVEN HERE Q6 HRS PRN SEVERE PAIN. NO FURTHER ORDERS. Objective - Vital Signs/Intake and Output Vital Signs (last 24 hours): Temp Pulse Resp BP Pulse Ox 98.7 F 77 20 147/84 98 03/08/18 07:56 03/08/18 07:56 03/08/18 07:56 03/08/18 07:56 03/08/18 07:56 Intake and Output: 03/08/18 03/08/18 06:59 18:59 Intake Total 650 Output Total 1900 Balance -1250 - Medications Medications: Current Medications Docusate Sodium (Colace) 100 mg PO BID [facility] Last Admin: 03/08/18 10:16 Dose: 100 mg Enoxaparin Sodium (Lovenox) 40 mg SC DAILY [facility] Last Admin: 03/08/18 10:15 Dose: 40 mg Hydromorphone HCl (Dilaudid) 0.5 mg IVP Q4H PRN PRN Reason: Pain, severe (8-10) Last Admin: 03/07/18 10:16 Dose: 0.5 mg Losartan Potassium (Cozaar) 50 mg PO BID [facility] Last Admin: 03/08/18 10:15 Dose: 50 mg Oxycodone/Acetaminophen (Percocet 5/325 Mg Tab) 2 tab PO Q4H PRN PRN Reason: Pain, moderate (4-7) Stop: 03/09/18 14:50 Last Admin: 03/07/18 21:56 Dose: 2 tab - Labs Labs: 03/08/18 06:09 03/08/18 06:09 PT 12.9 SECONDS (9.7-12.2) H 03/05/18 16:15 INR 1.2 03/05/18 16:15 APTT 32 SECONDS (21-34) 03/05/18 16:15
[2018-03-08 16:07] VITALS: BP 138/83; PULSE 83; TEMP 98.6; O2SAT 96
--- NOTE | 2018-03-09 15:20 | CARD ---
APPROVED REPORT EKG Measurement Heart [id number] TN [id number] <Conclusion> Normal sinus rhythm Probable reversal of leads V1 to V3 PLEASE REPEAT Abnormal ECG
== END 2018-03-08 18:50 | disposition home or self-care (01) | DRG 482 ==
LOC: C.ER 11:22 → C.9E 13:47 → C.6T 14:22
PROVIDERS: ADMIT Internal Medicine; ATTEND Internal Medicine
PROC: 0QS604Z Reposition Right Upper Femur with Internal Fixation Device, Open Approach (ICD-10-PCS; principal; 2018-03-06 11:00)
DX: S72.001A Fracture of unspecified part of neck of right femur, initial encounter for closed fracture (principal); I10 Essential (primary) hypertension; W01.0XXA Fall on same level from slipping, tripping and stumbling without subsequent striking against object, initial encounter; Y99.0 Civilian activity done for income or pay; Z79.01 Long term (current) use of anticoagulants; Z79.899 Other long term (current) drug therapy; Z82.49 Family history of ischemic heart disease and other diseases of the circulatory system; Z91.19 Patient's noncompliance with other medical treatment and regimen